=== PATIENT | male | born 1940 ===

== ENCOUNTER → 2024-03-31 | Outpatient (CLI) | payer MEDICARE, OTHER | LOC: LAB SHORT 10:31 → LAB 10:31 | DX: L08.9 Local infection of the skin and subcutaneous tissue, unspecified (principal) | CPT/HCPCS: 87070; 87077; 87147; 87186; 87205 ==

== ENCOUNTER → 2024-05-19 | Outpatient (CLI) | payer MEDICARE, OTHER | LOC: LAB 09:40 → LAB SHORT 09:40 | DX: L08.9 Local infection of the skin and subcutaneous tissue, unspecified (principal) | CPT/HCPCS: 87070; 87205 ==